=== PATIENT | male | born 1955 | race Caucasian/White ===

== ENCOUNTER 2017-07-01 14:04 | Emergency (ER) | payer BC ==
[~2017-07-01 14:04] MED LIST: ISOVUE-370 76%-LOCM 1 ML ONE
[2017-07-01 14:31] LABS: #Basophils 0.1 thou/uL (0.0-0.2); #Eosinphils 0.1 thou/uL (0.0-0.7); #Lymphocytes 1.7 thou/uL (1.20-3.40); #Monocytes 0.4 thou/uL (0.11-0.59); #Neutrophils 4.4 thou/uL (1.40-6.50); %Eosinophils 0.9 % (0.0-10.0); %Monocytes 6.4 % (0.0-10.0); %Neutrophils 66.8 % (42.0-75.0); Hemoglobin 14.6 g/dL (14.0-18.0); Mean Corpuscular HGB CONC 34.3 g/dL (32.0-36.0); Mean Corpuscular Hemoglobin 33.9 pg (27.0-31.0); Platelet Count 187 thou/uL (130-400); RBC Distribution Width 11.5 % (11.5-14.5); Red Blood Cell (RBC) Count 4.29 mill/uL (4.70-6.10); White Blood Cell (WBC) Count 6.6 thou/uL (4.8-10.8)
[2017-07-01 14:52] LABS: ALT (SGPT) 18 U/L (8-55); AST (SGOT) 39 U/L (5-34); Albumin 4.2 g/dL (3.5-5.0); Alkaline Phosphatase 70 U/L (40-150); Anion Gap 11 mmol/L (10-20); BUN (Urea Nitrogen) 17 mg/dL (8.4-25.7); Bilirubin, Total 0.3 mg/dL (0.2-1.2); Calc. Creatinine Clearance 0 mL/min (70-130); Calcium 9.3 mg/dL (7.8-10.44); Carbon Dioxide 26 mmol/L (22-29); Chloride 103 mmol/L (98-107); Estimated GFR-MDRD Greater than 90; Globulin 2.5 g/dL (2.4-3.5); Glucose 133 mg/dL (70-105); Potassium 3.8 mmol/L (3.5-5.1); Protein, Total 6.7 g/dL (6.0-8.3); Sodium 136 mmol/L (136-145)
--- NOTE | 2017-07-01 15:54 | CT ---
CT OF THE ABDOMEN AND PELVIS WITH IV CONTRAST 07/01/17 PROVIDED CLINICAL HISTORY: Right flank pain status post injury. FINDINGS: The visualized lung bases are free of significant opacity. There is a 3.8 cm solid appearing mass involving the anterior aspect of the mid to lower portion of t he right kidney. There is an exophytic hypodensity emanating from the inferior pole of the right kidn ey as well that demonstrates Hounsfield units greater than expected for a simple cyst but not clearly representing a solid enhancing process. Simple appearing cysts are also seen involving each kidney. The liver, spleen, pancreas, and adrenal glands demonstrate an unremarkable CT appearance. Changes of prior gastric sleeve surgery are noted. There is a circumscribed area of increased attenuation within the subcutaneous adipose layer of the r ight flank adjacent to the right iliac wing laterally compatible with hematoma. This measures about 7 .6 cm. there is no evidence for active extravasation. Surrounding fat stranding is present which like ly reflects bruising. There is no evidence for fracture. Sagittal and coronal lumbar spine reconstructions demonstrate norm al spinal alignment without evidence for fracture. Lumbar degenerative changes are seen. Atherosclerotic vascular calcifications are noted. IMPRESSION: 1. Solid right renal mass suspicious for renal cell carcinoma. Urology consultation is recommend ed. 2. Indeterminate exophytic focus arising from the inferior pole of the right kidney as well. Cor relation with renal ultrasound may be useful. 3. Right flank hematoma without evidence for active extravasation. Findings communicated to Dr. Rosa of the Emergency Department at 3:16 p.m., 07/01/17. Code CR POS: [facility]
[2017-07-01 16:39] LABS: Bilirubin Negative (Negative); Blood, Urine Negative (Negative); Clarity CLEAR (Clear); Glucose, Urine (Dipstick) Negative (Negative); Leukocyte Negative (Negative); Nitrite Negative (Negative); Protein, Urine (Dipstick) Negative (Neg-Trace); Specific Gravity, Urine 1.019 (1.002-1.036); Urobilinogen 0.2 mg/dL (0.2-1.0); pH, Urine 5.5 (5.0-9.0)
== END 2017-07-01 16:25 | disposition home or self-care (01) ==
LOC: ERS 14:04
DX: S30.1XXA Contusion of abdominal wall, initial encounter (principal); N28.89 Other specified disorders of kidney and ureter; I10 Essential (primary) hypertension; Z79.82 Long term (current) use of aspirin; W55.22XA Struck by cow, initial encounter
CPT/HCPCS: 36415; 74177; 80053; 81003; 85025; 86850; 86900; 86901

== ENCOUNTER 2017-07-12 11:15 | Inpatient (IN) | payer BC ==
[2017-07-12 12:13] VITALS: BMI 32.8
[2017-07-26] MEDS ORDERED: Bacitracin Zinc Ointment 30 gm TUBE ONE (07:13)
[2017-07-26] MEDS ORDERED: Fentanyl 100 MCG/2 ML VIAL ONE ×3 (07:48→12:55)
[2017-07-26] MEDS ORDERED: Midazolam HCl 2 mg/2 ml Vial ONE ×2 (07:48→07:57)
[2017-07-26] MEDS ORDERED: CEFAZOLIN/Water 2 GM/20 ML SYRINGE ONE (08:04)
[2017-07-26] MEDS ORDERED: Ropivacaine 0.5% HCl/PF (150 MG/30 ML VIAL) ONE (08:04)
[2017-07-26] MEDS ORDERED: Levofloxacin 500 mg/D5W 100 ml Premix Bag ONE (08:04)
[2017-07-26] MEDS ORDERED: Bupivacaine 0.25% 10 ML VIAL EPIDURAL PRN (08:15)
[2017-07-26] MEDS ORDERED: Naloxone HCl 0.4 mg/ml Vial IVP PRN (08:15)
[2017-07-26] MEDS ORDERED: Promethazine HCl 25 MG SUPP PR PRN (08:15)
[2017-07-26] MEDS ORDERED: diphenhydrAMINE 25 MG CAP PO PRN (08:15)
[2017-07-26] MEDS ORDERED: fentaNYL Citrate/PF 1,250 MCG, Bupivacaine 25 ML in Sodium Chloride 0.9% 250 ML 200 ML EPIDURAL SCH (08:15)
[2017-07-26] MEDS ORDERED: Hydrocerin (Eucerin) Cream 120 gm Jar TOP PRN (08:15)
[2017-07-26] MEDS ORDERED: diphenhydrAMINE 50 MG/ML VIAL IM PRN (08:15)
[2017-07-26] MEDS ORDERED: diphenhydrAMINE 50 MG/ML VIAL IVP PRN (08:15)
[2017-07-26] MEDS ORDERED: Naloxone HCl 0.4 mg/ml Vial IV PRN (08:15)
[2017-07-26] MEDS ORDERED: Zolpidem Tartrate 5 MG TAB PO PRN (08:15)
[2017-07-26] MEDS ORDERED: traMADol HCl 50 MG TAB PO PRN (08:15)
[2017-07-26] MEDS ORDERED: Promethazine HCl 25 MG/ML VIAL IM PRN ×2 (08:15→12:50)
[2017-07-26] MEDS ORDERED: Ondansetron HCl/PF 4 MG/2 ML Vial IVP PRN ×2 (08:15→12:50)
[2017-07-26] MEDS ORDERED: Ondansetron HCl/PF 4 MG/2 ML Vial ONE (11:33)
[2017-07-26] MEDS ORDERED: Lidocaine 1% PF 5 ML VIAL ONE (11:33)
[2017-07-26] MEDS ORDERED: PROPOFOL 200 MG/20 ML VIAL ONE (11:33)
[2017-07-26] MEDS ORDERED: Glycopyrrolate 0.2 MG/ML 5 ML SYRINGE ONE (11:33)
[2017-07-26] MEDS ORDERED: Promethazine HCl 25 MG/ML VIAL SLOW IVP PRN (12:50)
--- NOTE | 2017-07-26 13:09 | OP ---
DATE OF PROCEDURE: 07/26/2017 SERVICE: Urology. SURGEON: Sunny Arita M.D. ASSISTING PHYSICIAN: Nida Kelly D.O. PREOPERATIVE DIAGNOSIS: Right renal mass. POSTOPERATIVE DIAGNOSIS: Right renal mass. PROCEDURE PERFORMED: Right open partial nephrectomy. INDICATIONS FOR PROCEDURE: Mr. Lynch is a 62-year-old white male who presented to the emergency emma after getting kicked by a calf in the right flank. A CT done for the farm injury demonstrated that he had a small hematoma in his right flank, but also incidentally noted was an approximately 3.8 cm anterior lower pole renal mass and posterior indeterminate renal cyst. The anterior mass had a high risk for malignancy. Therefore, we discussed options and he elected for an open partial nephrectomy. Risks and benefits have been discussed and he has agreed to proceed forward. DESCRIPTION OF PROCEDURE: After identification of arm band and verification of consent, the patient was brought back to the operating room where he underwent general anesthesia with endotracheal intuba tion. He had an epidural placed preoperatively. He was placed in the modified supine position with the right side elevated 30 degrees and the bed flexed. All pressure points were padded and SCDs and a Collado catheter were placed as well. Incision was initially made from below the xiphoid approximate ly 3 cm below the xiphoid to 2 cm below the right costal margin. Dissection was carried down with Rock vie electrocautery to the external oblique aponeurosis. This was divided and the external oblique an d anterior rectus muscle were divided on the right side. The internal oblique aponeurosis and muscle s were then divided and the transversalis was bluntly spread to gain entry into the peritoneum. The falciform ligament was divided with the LigaSure device. There was significant amount of adhesions n oted within the patient's right lower quadrant and around his liver, presumably from his prior gastri c bypass surgery and previous ruptured appendix surgery. Lysis of adhesions was carried out with Met zenbaum scissors, taking care to avoid injury to colon. The colon was mobilized medially and the citlali er freed from adhesions. The gallbladder was noted to look healthy and there were no palpable stones within the gallbladder. Attention was then turned in between the Gerota's fascia and the reflected colon to expose the second and third portion of the duodenum. This was carefully dissected free and retracted medially along the lateral edge of the duodenum to expose the inferior vena cava below. Th e inferior vena cava was dissected completely until the gonadal vein could be seen inserting into the IVC. The renal vein was then dissected to expose the renal hilum. The renal artery was posterior t o this and could not reliably be identified. The renal vein was extremely short making exposure of t he renal artery extremely difficult. The upper pole was mobilized and care was taken to try to avoid removal of the adrenal gland. A small portion of the inferior aspect of the adrenal was accidentall y excised with the LigaSure device, but the majority of the adrenal gland has remained intact in situ . The posterior and lateral aspects of the kidney were dissected free. The inferior margin of the k idney was dissected free and the ureter was identified and secured with a vessel loop for later ident ification. The cyst on the posterior aspect of the kidney was dissected free and found to be primari ly intact with the fat. There was extremely small portion connected to the renal capsule. This was sharply excised and the base burned with argon beam. Fat was sent for routine pathologic evaluation. The fat around the kidney was then also dissected free. The fat was extremely dense and fibrotic w ith high vascularity causing significant bleeding around the kidney during the fat dissection. The f at was extremely adherent to the renal capsule. Attempts to find a plane between the renal capsule a nd the fat were not possible. Therefore, the majority of the lower pole of the kidney was dissected by going subcapsular and exposing the kidney itself. The renal cyst was exposed and the tumor was id entified right next to this. The fat over the tumor was sent separately for routine pathologic evalu ation as likely the capsule of the tumor was also adherent to the fat and this was all sent for patho logy. Once the tumor had been completely isolated and healthy kidney located around it. The tumor w as scored with the Bovie electrocautery. The cyst adjacent to the tumor was punctured and drained. Satinsky clamp was then placed across the renal hilum and clamped completely. This resulted in immed iate ischemia of the kidney. The kidney was iced for approximately 5 minutes for cold ischemia and o nce adequately chilled, the ice was removed. Bovie electrocautery was used to cut down through the c ortex of the kidney until the renal medulla could be seen. Using a combination of sharp dissection a nd back end of knife handle, the tumor was dissected free from the surrounding tissues. The greg wa s entered in the lower pole as this was intentional since the tumor was abutting the lower pole greg to ensure that this was a negative margin. The tumor margins looked good. There did not appear to be any violation of the tumor itself. The tumor was then sent for routine pathologic evaluation. Th e calices were closed with a 4-0 Vicryl and any open vessels that could be identified were also close d with a 4-0 Vicryl. The kidney was then closed in Y-configuration using a 0 chromic with pledgets i n a horizontal mattress type suture to close the renal defect. The renal cyst base was cauterized wi th the argon beam to avoid cyst recurrence. Once kidney was adequately closed, the Satinsky clamp wa s released for a total cold ischemia time of 27 minutes. The kidney immediately reperfused and there appeared to be a very mild bleeding from the crotch of the Y where the incision was connected to the cyst bed. Some additional sutures were placed near this location, but the cyst cavity remained open likely resulting in mild slow bleeding. We elected to pack the cyst cavity with the Surgicel which showed tamponade bleeding. This was done and there appeared to be excellent hemostasis at this point . The kidney was then irrigated thoroughly and then FloSeal applied over the suture line. Another S urgicel was applied over the FloSeal to hold it in place. The remaining Gerota's fat was then laid b ack over the kidney and closed with interrupted 2-0 Vicryls. The colon was then placed back into its original anatomic location and a TADEO drain was placed posterior to the kidney near Gerota's fascia an d brought out through a separate tiny incision below the main incision. The fascia was then closed i n two layers using a #1 PDS and some Stephanie was applied in between layers underneath the muscle jamil es. The epigastric was identified and ensured that it was ligated with LigaSure device to ensure yari t it was not bleeding prior to closure of the outer external oblique aponeurosis. More Stephanie was ap plied to the subcutaneous tissues and the skin closed with a skin stapler. An island dressing was ap plied and dressing around the TADEO drain. The patient was then taken out of positioning, awakened and taken to PACU for recovery in stable condition. COMPLICATIONS: None. ESTIMATED BLOOD LOSS: 600 mL. RETAINED TUBES AND DRAINS: A 16 Russian Collado catheter as well as #19 TADEO drain. SPECIMENS: Peritumor fat, right posterior indeterminate renal cyst and renal tumor. DISPOSITION: The patient will be admitted to the hospital for postoperative recovery. Once he is di scharged, his follow up will be handled on an outpatient basis.
[2017-07-26 13:47] LABS: #Monocytes 0.4 thou/uL (0.11-0.59); #Neutrophils 6.9 thou/uL (1.40-6.50); %Eosinophils 0.3 % (0.0-10.0); %Lymphocytes 11.5 % (21.0-51.0); %Monocytes 4.7 % (0.0-10.0); %Neutrophils 83.5 % (42.0-75.0); Hemoglobin 12.8 g/dL (14.0-18.0); Mean Corpuscular HGB CONC 33.8 g/dL (32.0-36.0); Mean Corpuscular Hemoglobin 34.5 pg (27.0-31.0); Mean Platelet Volume 5.9 fL (7.4-10.4); Platelet Count 161 thou/uL (130-400); RBC Distribution Width 11.6 % (11.5-14.5); Red Blood Cell (RBC) Count 3.71 mill/uL (4.70-6.10); White Blood Cell (WBC) Count 8.3 thou/uL (4.8-10.8)
[2017-07-26 14:08] LABS: Anion Gap 8 mmol/L (10-20); BUN (Urea Nitrogen) 16 mg/dL (8.4-25.7); Calc. Creatinine Clearance 125 mL/min (70-130); Calcium 8.2 mg/dL (7.8-10.44); Carbon Dioxide 29 mmol/L (22-29); Chloride 103 mmol/L (98-107); Estimated GFR-MDRD 81; Glucose 130 mg/dL (70-105); Potassium 4.2 mmol/L (3.5-5.1); Sodium 136 mmol/L (136-145)
[2017-07-26] MEDS ORDERED: Oxybutynin 5 MG TAB PO PRN (16:10)
[2017-07-26] MEDS ORDERED: Bisacodyl 10 MG SUPP PR PRN (16:10)
[2017-07-26] MEDS ORDERED: hydrALAZINE 20 MG/ML VIAL SLOW IVP PRN (16:10)
[2017-07-26] MEDS: Docusate 100 MG CAP PO SCH (20:58)
[2017-07-26] MEDS: cefOXitin 1.5 GM in Sodium Chloride 0.9% 100 ML IVPB SCH (21:03)
[2017-07-26] MEDS: Sodium Chloride 0.9% 1,000 ML IV SCH (21:07)
[2017-07-27 05:06] LABS: #Lymphocytes 1.3 thou/uL (1.20-3.40); #Monocytes 0.5 thou/uL (0.11-0.59); #Neutrophils 5.4 thou/uL (1.40-6.50); %Basophils 0.3 % (0.0-1.0); %Eosinophils 0.3 % (0.0-10.0); %Lymphocytes 17.6 % (21.0-51.0); %Neutrophils 74.8 % (42.0-75.0); Hemoglobin 12.1 g/dL (14.0-18.0); Mean Corpuscular HGB CONC 34.5 g/dL (32.0-36.0); Mean Corpuscular Hemoglobin 34.8 pg (27.0-31.0); Mean Platelet Volume 6.3 fL (7.4-10.4); Platelet Count 144 thou/uL (130-400); RBC Distribution Width 11.6 % (11.5-14.5); Red Blood Cell (RBC) Count 3.48 mill/uL (4.70-6.10); White Blood Cell (WBC) Count 7.3 thou/uL (4.8-10.8)
[2017-07-27 05:10] LABS: Anion Gap 10 mmol/L (10-20); BUN (Urea Nitrogen) 14 mg/dL (8.4-25.7); Calc. Creatinine Clearance 114 mL/min (70-130); Calcium 8.1 mg/dL (7.8-10.44); Carbon Dioxide 29 mmol/L (22-29); Chloride 104 mmol/L (98-107); Estimated GFR-MDRD 73; Glucose 106 mg/dL (70-105); Sodium 139 mmol/L (136-145)
[2017-07-27] MEDS: Sodium Chloride 0.9% 1,000 ML IV SCH ×3 (05:15→15:00)
[2017-07-27] MEDS: cefOXitin 1.5 GM in Sodium Chloride 0.9% 100 ML IVPB SCH ×2 (06:43→15:00)
[2017-07-27] MEDS: Docusate 100 MG CAP PO SCH ×2 (08:35→19:54)
[2017-07-27] MEDS: Acetaminophen 1,000 MG in Premix Bag 1 BAG IVPB PRN ×2 (10:29→19:54)
--- NOTE | 2017-07-27 20:03 | PRG ---
DATE OF SERVICE: 07/27/2017 SUBJECTIVE: The patient states he is feeling quite good. His pain is worse than yesterday, but his epidural had also been turned down. He is not in uncontrolled pain. He denies any appetite. He has not had any flatus. He denies any rumbling in his stomach. He denies any nausea, vomiting, chest p ain, shortness of breath, fevers or chills. He has not been out of bed. OBJECTIVE: VITAL SIGNS: Temperature 98.7, pulse 76, respirations 20, blood pressure 96/59, saturation 92% on ro om air. GENERAL: No apparent distress, communicative and alert. CARDIOVASCULAR: Regular rate and rhythm. ABDOMEN: Soft, nondistended, appropriately tender to palpation. Incision is currently dressed. TADEO is serosanguineous. GENITOURINARY: Collado catheter in place with blood-tinged urine. EXTREMITIES: No clubbing, cyanosis or edema. SCDs in place. TADEO put out 60 mL overnight. LABORATORY EVALUATION: A full set of labs are in the [facility] system, which I have reviewed. Of not e, the patient's hemoglobin is stable at 12.1. Creatinine is stable at 1.04. ASSESSMENT: A 62-year-old white male status post right open partial nephrectomy, postoperative day # 1, recovering appropriately. I would like him to get up out of bed today with assistance only. I wi ll counseling psychologist walking program. His bed rest restrictions are now lifted. I would like him to use his i ncentive spirometer 10 times an hour. I would like to keep him n.p.o. for the current time, we will continue with IV fluids and pain control per the Anesthesia team. If his hemoglobin is stable tomorr ow, we will start Lovenox for deep venous thrombosis prophylaxis. I will continue to monitor and obt ain daily labs.
[2017-07-28] MEDS: Sodium Chloride 0.9% 1,000 ML IV SCH ×3 (00:15→10:56)
[2017-07-28 05:34] LABS: #Eosinphils 0.1 thou/uL (0.0-0.7); #Monocytes 0.5 thou/uL (0.11-0.59); #Neutrophils 5.4 thou/uL (1.40-6.50); %Basophils 0.4 % (0.0-1.0); %Eosinophils 1.5 % (0.0-10.0); %Lymphocytes 14.2 % (21.0-51.0); %Monocytes 6.9 % (0.0-10.0); Hemoglobin 11.2 g/dL (14.0-18.0); Mean Corpuscular HGB CONC 33.3 g/dL (32.0-36.0); Mean Platelet Volume 6.2 fL (7.4-10.4); Platelet Count 119 thou/uL (130-400); RBC Distribution Width 11.6 % (11.5-14.5)
[2017-07-28 05:45] LABS: Anion Gap 7 mmol/L (10-20); BUN (Urea Nitrogen) 13 mg/dL (8.4-25.7); Calc. Creatinine Clearance 123 mL/min (70-130); Calcium 8.9 mg/dL (7.8-10.44); Carbon Dioxide 28 mmol/L (22-29); Chloride 107 mmol/L (98-107); Estimated GFR-MDRD 80; Glucose 94 mg/dL (70-105); Potassium 4.4 mmol/L (3.5-5.1); Sodium 138 mmol/L (136-145)
[2017-07-28] MEDS: Docusate 100 MG CAP PO SCH ×2 (08:40→21:13)
--- NOTE | 2017-07-28 09:04 | PRG ---
DATE OF SERVICE: 07/28/2017 SUBJECTIVE: The patient states he is feeling good. He had minimal to no pain last night. He slept very well. Denies any chest pain or shortness of breath. He did pass a little bit of gas this morni ng. He does not have a strong appetite, but states he would be willing to try something to drink. OBJECTIVE: VITAL SIGNS: Temperature 99.3, pulse 84, respirations 15, blood pressure 110/68, saturation 95% on r oom air. Ins and outs, the patient had approximately 3000 mL in IV fluids and 575 mL orally. He put out 675 mL from his Collado and 100 mL from the TADEO drain. GENERAL: No apparent distress, communicative and alert. CARDIOVASCULAR: Regular rate and rhythm. ABDOMEN: Soft, minimally tender to palpation, nondistended. Positive bowel sounds. Incision dressi ng was removed today. Incision is clean, dry, and intact without evidence of infection. TADEO is seros anguineous. GENITOURINARY: Collado catheter in place with clear yellow urine. EXTREMITIES: No clubbing, cyanosis or edema. SCDs in place. LABORATORY DATA: The full set of labs are in the [facility] system, which I have reviewed. Of note, t he patient's hemoglobin is currently 11.2. White count is 7, creatinine of 0.96. ASSESSMENT AND PLAN: A 62-year-old white male status post right open partial nephrectomy from the prado bcostal approach. Postop day #2, doing very well. His dressing was removed today. I would like to start working his epidural down, although I do not want it removed today. We may consider trying to have it removed tomorrow. I will go ahead and start him on Lovenox today as he does not have any sig nificant signs of bleeding. His hemoglobin is relatively stable. I do believe that is dilutional gi willy that he is getting a significant amount of fluids in and only producing a small amount of urine. We will turn his IV fluids down today, but not off as I do not expect him to take large amounts of p .o. fluid. I would like him to continue using his incentive spirometer and be up out of bed to try a nd promote bowel function. We will start clear liquids today and once he passes more gas or has stro ng rumbling or stronger appetite we can start some regular diet. Dr. Sohan Lai will be covering fo r me over the weekend and will continue to round on the patient in my stead. I will resume care on on. Currently, we are looking at possible disposition home on Monday pending the patient recovers as expected.
[2017-07-28] MEDS: Acetaminophen 650 MG in Premix Bag 1 BAG IVPB PRN ×2 (13:00→21:13)
[2017-07-28] MEDS: Enoxaparin Sodium 40 MG/0.4 ML SYRINGE SC SCH (21:13)
[2017-07-29] MEDS: Sodium Chloride 0.9% 1,000 ML IV SCH ×2 (01:17→08:46)
[2017-07-29 06:04] LABS: #Eosinphils 0.2 thou/uL (0.0-0.7); #Lymphocytes 1.2 thou/uL (1.20-3.40); #Monocytes 0.5 thou/uL (0.11-0.59); #Neutrophils 4.1 thou/uL (1.40-6.50); %Basophils 0.4 % (0.0-1.0); %Eosinophils 2.7 % (0.0-10.0); %Lymphocytes 20.5 % (21.0-51.0); %Monocytes 8.3 % (0.0-10.0); %Neutrophils 68.3 % (42.0-75.0); Mean Corpuscular HGB CONC 33.7 g/dL (32.0-36.0); Mean Corpuscular Hemoglobin 34.5 pg (27.0-31.0); Mean Platelet Volume 6.2 fL (7.4-10.4); Platelet Count 108 thou/uL (130-400); RBC Distribution Width 11.5 % (11.5-14.5); Red Blood Cell (RBC) Count 2.91 mill/uL (4.70-6.10); White Blood Cell (WBC) Count 5.9 thou/uL (4.8-10.8)
[2017-07-29 06:10] LABS: Anion Gap 7 mmol/L (10-20); BUN (Urea Nitrogen) 9 mg/dL (8.4-25.7); Calc. Creatinine Clearance 148 mL/min (70-130); Calcium 8.8 mg/dL (7.8-10.44); Carbon Dioxide 29 mmol/L (22-29); Chloride 104 mmol/L (98-107); Estimated GFR-MDRD Greater than 90; Glucose 94 mg/dL (70-105); Potassium 3.9 mmol/L (3.5-5.1); Sodium 136 mmol/L (136-145)
[2017-07-29] MEDS: Docusate 100 MG CAP PO SCH ×2 (08:33→20:44)
[2017-07-29] MEDS: HYDROcodone/Acetaminophen 5/325 mg Tablet PO PRN ×3 (12:08→20:46)
--- NOTE | 2017-07-29 19:13 | PRG ---
DATE OF SERVICE: 07/29/2017 SUBJECTIVE: Mr. Lynch is reporting that he is still having some bloating of his abdomen today. He reports passing a small amount of air per rectum. He is reporting that he is feeling somewhat better today than before. His left-sided TADEO is still in place. Collado catheter is in place and his epidura l has been discontinued. PHYSICAL EXAMINATION: VITAL SIGNS: Temperature is 100.7 and T-max was 103 over the last 24 hours. The patient's current p ulse is 79, respirations 16, O2 saturations 96% on room air, blood pressure is 119/75. GENERAL: This is a pleasant, awake, alert, white male in no apparent distress. He is a good histori an. HEENT: Extraocular movements are intact. Sclerae are anicteric. Oropharynx is clear. NECK: Supple. LUNGS: Clear to auscultation bilaterally. There is some elevation of the auscultatory bragg mast maker iorly secondary to abdominal distention. ABDOMEN: There is increased resonance in all 4 quadrants on percussion. Right-sided subcostal incis ional scar is stapled at this point. There is a right-sided TADEO drain present. GENITOURINARY: Collado catheter remains in place. EXTREMITIES: Appear within normal limits. LAMAR hose and sequential compression devices are present. LABORATORY STUDIES: The patient's white count is 5.9 thousand, hemoglobin is 10.0 with hematocrit o f 29.7. There is no evidence of left shift with 68.3% neutrophils. Renal function appears quite goo d with current blood urea nitrogen of 9 and creatinine of 0.8. Estimated GFR is greater than 90. ASSESSMENT AND PLAN: 1. 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 The patient is doing well. He is making good progress. He is reporting some early signs of return to bowel function. 2. Genitourinary issues, plan to remove the Collado catheter today since the epidural has been removed . 3. Gastrointestinal: The patient has some return to bowel function. I think he should remain on cl ear liquids based on the degree of distention of his abdomen today. 4. Low grade fever, probably related to atelectasis. He did have cultures blood drawn last night, d oes not have any evidence of current left shift or elevation of white count. Therefore, this is prim arily related to abdominal distention issues associated with an ileus. Total evaluation and assessment time, over 35 minutes.
[2017-07-29] MEDS: Enoxaparin Sodium 40 MG/0.4 ML SYRINGE SC SCH (20:44)
[2017-07-29] MEDS: traMADol HCl 50 MG TAB PO PRN (20:45)
[2017-07-30] MEDS: HYDROcodone/Acetaminophen 5/325 mg Tablet PO PRN ×4 (03:44→20:53)
[2017-07-30 05:59] LABS: #Eosinphils 0.2 thou/uL (0.0-0.7); #Lymphocytes 0.9 thou/uL (1.20-3.40); #Monocytes 0.3 thou/uL (0.11-0.59); #Neutrophils 2.3 thou/uL (1.40-6.50); %Basophils 0.5 % (0.0-1.0); %Eosinophils 4.2 % (0.0-10.0); %Lymphocytes 23.5 % (21.0-51.0); %Monocytes 8.8 % (0.0-10.0); %Neutrophils 62.9 % (42.0-75.0); Hemoglobin 9.8 g/dL (14.0-18.0); Mean Corpuscular HGB CONC 34.7 g/dL (32.0-36.0); Mean Corpuscular Hemoglobin 35.3 pg (27.0-31.0); Mean Platelet Volume 6.1 fL (7.4-10.4); Platelet Count 129 thou/uL (130-400); RBC Distribution Width 11.2 % (11.5-14.5); Red Blood Cell (RBC) Count 2.78 mill/uL (4.70-6.10); White Blood Cell (WBC) Count 3.7 thou/uL (4.8-10.8)
[2017-07-30 06:13] LABS: Anion Gap 8 mmol/L (10-20); BUN (Urea Nitrogen) 6 mg/dL (8.4-25.7); Calc. Creatinine Clearance 154 mL/min (70-130); Calcium 8.6 mg/dL (7.8-10.44); Carbon Dioxide 32 mmol/L (22-29); Chloride 104 mmol/L (98-107); Estimated GFR-MDRD Greater than 90; Glucose 95 mg/dL (70-105); Potassium 3.8 mmol/L (3.5-5.1); Sodium 140 mmol/L (136-145)
[2017-07-30] MEDS: Docusate 100 MG CAP PO SCH ×2 (08:24→20:51)
[2017-07-30] MEDS: Sodium Chloride 0.9% 1,000 ML IV SCH ×2 (09:49→23:57)
[2017-07-30] MEDS: traMADol HCl 50 MG TAB PO PRN ×2 (11:22→17:39)
[2017-07-30] MEDS: Enoxaparin Sodium 40 MG/0.4 ML SYRINGE SC SCH (20:52)
[2017-07-31] MEDS: traMADol HCl 50 MG TAB PO PRN ×4 (00:02→23:12)
[2017-07-31] MEDS: HYDROcodone/Acetaminophen 5/325 mg Tablet PO PRN (03:37)
[2017-07-31 05:26] LABS: #Eosinphils 0.2 thou/uL (0.0-0.7); #Lymphocytes 0.8 thou/uL (1.20-3.40); #Monocytes 0.3 thou/uL (0.11-0.59); #Neutrophils 1.9 thou/uL (1.40-6.50); %Basophils 0.4 % (0.0-1.0); %Eosinophils 4.8 % (0.0-10.0); %Lymphocytes 25.7 % (21.0-51.0); %Monocytes 10.3 % (0.0-10.0); %Neutrophils 58.9 % (42.0-75.0); Hemoglobin 9.6 g/dL (14.0-18.0); Mean Corpuscular HGB CONC 34.7 g/dL (32.0-36.0); Mean Platelet Volume 5.8 fL (7.4-10.4); Platelet Count 148 thou/uL (130-400); RBC Distribution Width 11.4 % (11.5-14.5); Red Blood Cell (RBC) Count 2.74 mill/uL (4.70-6.10); White Blood Cell (WBC) Count 3.2 thou/uL (4.8-10.8)
[2017-07-31 05:36] LABS: Anion Gap 10 mmol/L (10-20); BUN (Urea Nitrogen) 6 mg/dL (8.4-25.7); Calc. Creatinine Clearance 185 mL/min (70-130); Calcium 8.5 mg/dL (7.8-10.44); Carbon Dioxide 30 mmol/L (22-29); Chloride 104 mmol/L (98-107); Estimated GFR-MDRD Greater than 90; Glucose 93 mg/dL (70-105); Potassium 3.6 mmol/L (3.5-5.1); Sodium 140 mmol/L (136-145)
[2017-07-31] MEDS: Docusate 100 MG CAP PO SCH ×2 (09:05→20:49)
[2017-07-31] MEDS: Enoxaparin Sodium 40 MG/0.4 ML SYRINGE SC SCH (20:50)
[2017-07-31] MEDS: Bacitracin Zinc 1 Packet TOP SCH (20:50)
[2017-08-01 04:41] LABS: #Eosinphils 0.1 thou/uL (0.0-0.7); #Monocytes 0.4 thou/uL (0.11-0.59); %Basophils 0.4 % (0.0-1.0); %Lymphocytes 27.3 % (21.0-51.0); %Monocytes 11.1 % (0.0-10.0); %Neutrophils 57.2 % (42.0-75.0); Hemoglobin 9.9 g/dL (14.0-18.0); Mean Corpuscular Hemoglobin 34.5 pg (27.0-31.0); Mean Platelet Volume 6.1 fL (7.4-10.4); Platelet Count 177 thou/uL (130-400); RBC Distribution Width 11.2 % (11.5-14.5); Red Blood Cell (RBC) Count 2.87 mill/uL (4.70-6.10); White Blood Cell (WBC) Count 3.5 thou/uL (4.8-10.8)
[2017-08-01 04:57] LABS: Anion Gap 7 mmol/L (10-20); BUN (Urea Nitrogen) 7 mg/dL (8.4-25.7); Calc. Creatinine Clearance 158 mL/min (70-130); Calcium 8.6 mg/dL (7.8-10.44); Carbon Dioxide 34 mmol/L (22-29); Chloride 102 mmol/L (98-107); Estimated GFR-MDRD Greater than 90; Glucose 86 mg/dL (70-105); Potassium 3.7 mmol/L (3.5-5.1); Sodium 139 mmol/L (136-145)
[2017-08-01] MEDS: Docusate 100 MG CAP PO SCH (09:31)
[2017-08-01] MEDS: Bacitracin Zinc 1 Packet TOP SCH (09:31)
[2017-08-01 15:10] VITALS: BP 117/76; TEMP 98.7
--- NOTE | 2017-08-01 16:22 | PRG ---
DATE OF SERVICE: 08/01/2017 SUBJECTIVE: The patient states that he is doing very well. He tolerated regular diet and was able t o eat regular food without any problems. He still has not had a bowel movement, but is passing gas. He did not have any nausea or vomiting after eating. He has been up out of bed, walking on his own. His pain is well controlled on tramadol alone. He was urinating easily and his labs appeared to be stable. He has no other complaints. OBJECTIVE: VITAL SIGNS: Temperature 98.7, pulse 62, respirations 18, blood pressure 128/77, saturation 97% on r oom air. GENERAL: No apparent distress, communicative, alert. CARDIOVASCULAR: Regular rate and rhythm. ABDOMEN: Soft, nontender, and nondistended. Incision is clean, dry, and intact. TADEO is now out. No evidence of infection. EXTREMITIES: No clubbing, cyanosis or edema. LABORATORY DATA: On laboratory evaluation, a full set of labs in the [facility] system, which I have r eviewed. Of note, the patient's white count is 3.5 with hemoglobin 9.9, creatinine is currently 0.75 . ASSESSMENT AND PLAN: A 62-year-old white male with a right clear cell carcinoma status post right op en partial nephrectomy, postoperative day #6, he has recovered fully and has adequate bowel function to be discharged home. He has met all other criteria. I think he can go home and follow up with me in approximately another week for staple removals. I went over his discharge instructions today with him and will send his medications to his pharmacy.
--- NOTE | 2017-08-01 16:31 | PRG ---
DATE OF SERVICE: 07/31/2017 SUBJECTIVE: The patient states he is feeling pretty good. He has had no significant pain. His epid ural was removed over the weekend. His Collado catheter was removed and he has been urinating well. Holli go has not had a bowel movement, but is passing gas. He had some abdominal distention and has no sign ificant appetite. Therefore, he was left on clear liquids over the weekend by Dr. Lai. He has bee n afebrile since then and otherwise has not had any other complaints. He has been getting up out of bed on his own and walking without issues. OBJECTIVE: VITAL SIGNS: Temperature 99.4, pulse 68, respirations 16, blood pressure 143/88, saturation 96% on r oom air. TADEO output is 30 mL over the last 24 hours. GENERAL: No apparent distress, communicative, alert. CARDIOVASCULAR: Regular rate and rhythm. ABDOMEN: Soft, nontender, nondistended. Incision clean, dry, and intact. TADEO serosanguineous with s cant output. Skin abrasions appear to be healing well without infection. There is no obvious hernia or cellulitis. EXTREMITIES: No clubbing, cyanosis, or edema. GENITOURINARY: Collado catheter has been removed. LABORATORY DATA: The full set of labs are in the [facility] system, which I have reviewed. Of note, t he patient's white count is 3.2 with hemoglobin of 9.6. Creatinine is 0.64. ASSESSMENT AND PLAN: A 62-year-old white male with a right renal mass, which has come back with path ology of right clear cell carcinoma from grade II with negative margins, status post right open parti al nephrectomy, postoperative day 5 healing appropriately. He has not had advancement to a regular d iet and has not tried regular food yet. I think I would like to keep in the hospital one more day to advance his diet, ensure that his bowel function has become adequate before we discharge him home, e specially given the fact that he has had a prior gastric sleeve surgery. We will put him on a regula r diet today and discontinue his TADEO tube. I will have him continue walking and using incentive rush meter and monitor to see how he does. If he is able to tolerate regular diet, I think he has met all his other criteria for discharge home tomorrow.
--- NOTE | 2017-08-01 20:32 | DIS ---
DATE OF ADMISSION: 07/26/2017 DATE OF DISCHARGE: 08/01/2017 ADMITTING PHYSICIAN: Sunny Arita M.D. DISCHARGING PHYSICIAN: Sunny Arita M.D. ADMITTING DIAGNOSIS: Right renal mass. DISCHARGE DIAGNOSIS: Right clear cell carcinoma, Selena grade 2. PROCEDURE PERFORMED WHILE INPATIENT: Right open partial nephrectomy via the subcostal approach. BRIEF HISTORY: Mr. Lynch is a 62-year-old white male who initially had presented to me after a trau ma to the right flank and CT demonstrating a right solid renal mass. He also had an indeterminate cy st on the posterior aspect of the kidney. We discussed a partial nephrectomy in this setting with danyell roy risks and benefits and he has elected to proceed forward. He is now coming in for this surgery. HOSPITAL COURSE: After his surgery (please see operative note for details), the patient was admitted to the hospital with an epidural, Collado catheter, and for postop recovery. He was initially left n. p.o. for postop day #0 and started on clears on postop day #1. He was not able to take in large amou nts of fluids; therefore, he was left on IV fluids at least until postoperative day #3, at which time his IV fluids were decreased due to evidence of slowly declining hemoglobin indicative of likely vol ume overload given that he is taking much more fluid and then he was putting out. His creatinine and hemoglobin otherwise remained relatively stable during his hospital stay. He was slowly able to adv ance his diet from clear liquids to a regular diet, although this took some time as he did have a slo w recovery of bowel function. He was able to eat a regular diet by postoperative day #6 at the time of his discharge. His epidural was removed on postoperative day #4 and he had good pain control with tramadol alone. He rarely required his [place] or breakthrough IV pain medications. He was able to g et up and walk initially with a walking program and then subsequently without any assistance. His Fo paola catheter was removed after his epidural was removed and he was able to void spontaneously on his own. The patient originally had hematuria after his surgery, but this cleared up very quickly and he did not have any further episodes of hematuria afterwards. The patient did not have a bowel movemen t while in the hospital, but did pass significant amounts of gas. He otherwise had no chest pain, sh ortness of breath, and did not have any other complications. His recovery went very well and by post op day #6, he had met all required criteria for discharge. DISPOSITION: Discharged to home. DISCHARGE CONDITION: Good. DISCHARGE MEDICATIONS: Include resuming all of his home medications including his aspirin. In addit ion, he was given tramadol 50 mg p.o. q.6 hours p.r.n. pain, [place] 5/325 mg p.o. q.6 hours p.r.n. samra n, and Colace 100 mg p.o. b.i.d. DISCHARGE INSTRUCTIONS: Include no heavy lifting over 20 pounds, no strenuous activity, no driving f or at least 1 additional week after being discharged from the hospital. He should not submerge under water, but may shower. He can continue to eat what he likes although he should continue to eat heal thy foods with higher protein contents and in accordance to his bariatric surgeons' restrictions. He should notify me for recurrent gross hematuria, uncontrolled pain, problems with his incision, fever s, shortness of breath, or chest pain or any other concerning signs or symptoms the patient may have. FOLLOWUP: Will be in approximately 1 week on 08/10/2017, at 1:00 for staple removal and p ostop check.
== END 2017-08-01 15:43 | disposition home or self-care (01) | DRG 657 ==
LOC: SURG A 07-26 06:52 → EDSTATUS 07-26 11:15 → SURG B 07-26 15:48
PROVIDERS: ADMIT Urology; ATTEND Urology
PROC: 0TB00ZZ Excision of Right Kidney, Open Approach (ICD-10-PCS; principal; 2017-07-26)
DX: C64.1 Malignant neoplasm of right kidney, except renal pelvis (principal); J98.11 Atelectasis; E87.70 Fluid overload, unspecified; K56.7 Ileus, unspecified; R50.9 Fever, unspecified; E78.5 Hyperlipidemia, unspecified; I10 Essential (primary) hypertension; I25.10 Atherosclerotic heart disease of native coronary artery without angina pectoris; G47.33 Obstructive sleep apnea (adult) (pediatric); Z88.0 Allergy status to penicillin; Z88.8 Allergy status to other drugs, medicaments and biological substances
CPT/HCPCS: 36415; 80048; 85025; 86850; 86900; 86901; 87040; 87086; 88304; 88307; J0131; J0694; J1650; J1956; J2001; J2250; J2405; J2704; J2795; J3010; J3490; J7050

== ENCOUNTER 2017-07-12 11:54 | Outpatient (CLI) | payer BC ==
[2017-07-12 13:19] LABS: Hemoglobin 14.4 g/dL (14.0-18.0); Mean Corpuscular HGB CONC 34.3 g/dL (32.0-36.0); Platelet Count 212 thou/uL (130-400); RBC Distribution Width 11.5 % (11.5-14.5); Red Blood Cell (RBC) Count 4.11 mill/uL (4.70-6.10); White Blood Cell (WBC) Count 6.5 thou/uL (4.8-10.8)
[2017-07-12 13:32] LABS: PTT 25.3 SEC (22.9-36.1); Prothrombin Time 12.8 SEC (12.0-14.7)
[2017-07-12 13:45] LABS: ALT (SGPT) 17 U/L (8-55); AST (SGOT) 32 U/L (5-34); Albumin 4.1 g/dL (3.5-5.0); Alkaline Phosphatase 73 U/L (40-150); Anion Gap 8 mmol/L (10-20); BUN (Urea Nitrogen) 17 mg/dL (8.4-25.7); Bilirubin, Total 0.5 mg/dL (0.2-1.2); Calc. Creatinine Clearance 0 mL/min (70-130); Calcium 9.2 mg/dL (7.8-10.44); Carbon Dioxide 31 mmol/L (22-29); Chloride 104 mmol/L (98-107); Estimated GFR-MDRD Greater than 90; Globulin 2.4 g/dL (2.4-3.5); Glucose 88 mg/dL (70-105); Potassium 4.1 mmol/L (3.5-5.1); Protein, Total 6.5 g/dL (6.0-8.3); Sodium 139 mmol/L (136-145)
[2017-07-12 14:34] LABS: Bilirubin Negative (Negative); Blood, Urine Negative (Negative); Clarity CLEAR (Clear); Glucose, Urine (Dipstick) Negative (Negative); Leukocyte Negative (Negative); Nitrite Negative (Negative); Protein, Urine (Dipstick) Negative (Neg-Trace); Specific Gravity, Urine 1.008 (1.002-1.036); Urobilinogen 0.2 mg/dL (0.2-1.0)
[2017-07-12 14:41] LABS: Bacteria/HPF None Seen HPF (None Seen); Hyaline Casts/LPF 0-3 HYALINE CAST LPF (0-3 Hyaline); RBC/HPF 0-3 HPF (0-3); Squamous Epithelial None Seen HPF (0-3); WBC/HPF None Seen HPF (0-3)
--- NOTE | 2017-07-12 16:14 | RAD ---
PA AND LATERAL CHEST: Date: 07-12-17 History: Pre-operative evaluation. FINDINGS: Cardiac silhouette and pulmonary vasculature are within normal limits. The lungs are clear. Osseous s tructures are intact. IMPRESSION: No acute cardiopulmonary process. POS: [facility]
== END 2017-07-12 11:55 | disposition home or self-care (01) ==
LOC: LABBT 11:54
PROVIDERS: ATTEND Urology
DX: Z01.818 Encounter for other preprocedural examination (principal); N28.89 Other specified disorders of kidney and ureter
CPT/HCPCS: 71046; 80053; 81001; 85027; 85610; 85730; 93005; 93010

== ENCOUNTER 2017-07-19 14:01 | Outpatient (CLI) | payer BC | END 2017-07-19 14:02 | disposition home or self-care (01) | LOC: LABBT 14:01 | PROVIDERS: ATTEND Urology | DX: Z01.812 Encounter for preprocedural laboratory examination (principal); N28.89 Other specified disorders of kidney and ureter | CPT/HCPCS: 86850; 86900; 86901 ==

== ENCOUNTER 2018-02-23 08:15 | Outpatient (CLI) | payer BC ==
--- NOTE | 2018-02-23 10:14 | RAD ---
PA AND LATERAL CHEST: HISTORY: Renal cell carcinoma of the right kidney. COMPARISON: 07/12/2017 FINDINGS: The heart size is normal. The lungs are well expanded without focal areas of consolidation, pneumoth orax, or pleural effusions. No acute osseous abnormalities are seen. IMPRESSION: No radiographic evidence of acute cardiopulmonary process. POS: [facility]
[2018-02-23] MEDS ORDERED: ISOVUE-370 76%-LOCM 1 ML ONE (12:31)
--- NOTE | 2018-02-23 14:03 | CT ---
CT ABDOMEN WITH AND WITHOUT CONTRAST: HISTORY: Patient with resected right-sided renal cell carcinoma. TECHNIQUE: Pre and post contrast enhanced CT images of the abdomen obtained. Imaged obtained during early and l ate venous phases. FINDINGS: The lung bases demonstrate a well circumscribed, tiny, lower lung base opacity seen on axial image #1 8 and also seen on coronal image #63. This may represent a small, stable lung parenchymal lesion. W hether this represents a metastatic lesion or an area of old scar I cannot determine. No other newly developed lesions seen. The liver and spleen are unremarkable. The gallbladder and pancreas are un remarkable. Gastric surgical alyson are seen. Cortical cyst seen in the left kidney. The patient has had a partial right-sided nephrectomy with alyson seen along the expected contour of the removed surgical mass at the anterior to mid pole of the right kidney. Some edematous changes or scarring seen surrounding the right perirenal space. No evidence of periaortic lymphadenopathy is seen. No definite evidence of osseous metastatic lesions seen. IMPRESSION: Status post partial nephrectomy of the right kidney. No other significant interval changes seen. POS: [facility]
== END 2018-02-23 08:16 | disposition home or self-care (01) ==
LOC: BICCT 08:15
PROVIDERS: ATTEND Urology
DX: C64.1 Malignant neoplasm of right kidney, except renal pelvis (principal); Z90.5 Acquired absence of kidney
CPT/HCPCS: 36415; 71046; 74170; 80048; 81001

== ENCOUNTER 2018-05-14 02:58 | Emergency (ER) | payer BC ==
[2018-05-14 03:29] LABS: Bilirubin Negative (Negative); Blood, Urine Negative (Negative); Clarity CLEAR (Clear); Glucose, Urine (Dipstick) Negative (Negative); Leukocyte Negative (Negative); Nitrite Negative (Negative); Protein, Urine (Dipstick) Negative (Neg-Trace); Specific Gravity, Urine 1.017 (1.002-1.036); Urobilinogen 0.2 mg/dL (0.2-1.0)
[2018-05-14 03:42] LABS: #Basophils 0.1 thou/uL (0.0-0.2); #Eosinphils 0.1 thou/uL (0.0-0.7); #Lymphocytes 1.1 thou/uL (1.20-3.40); #Monocytes 0.4 thou/uL (0.11-0.59); #Neutrophils 6.1 thou/uL (1.40-6.50); %Basophils 0.7 % (0.0-1.0); %Eosinophils 0.8 % (0.0-10.0); %Lymphocytes 14.6 % (21.0-51.0); Hemoglobin 15.4 g/dL (14.0-18.0); Mean Corpuscular HGB CONC 34.2 g/dL (32.0-36.0); Mean Corpuscular Hemoglobin 34.4 pg (27.0-31.0); Mean Platelet Volume 6.5 fL (7.4-10.4); Platelet Count 198 thou/uL (130-400); RBC Distribution Width 11.3 % (11.5-14.5); Red Blood Cell (RBC) Count 4.48 mill/uL (4.70-6.10); White Blood Cell (WBC) Count 7.7 thou/uL (4.8-10.8)
[2018-05-14 03:58] LABS: ALT (SGPT) 19 U/L (8-55); AST (SGOT) 41 U/L (5-34); Albumin 4.4 g/dL (3.4-4.8); Alkaline Phosphatase 76 U/L (40-150); Anion Gap 15 mmol/L (10-20); BUN (Urea Nitrogen) 16 mg/dL (8.4-25.7); Bilirubin, Total 0.5 mg/dL (0.2-1.2); Calc. Creatinine Clearance 0 mL/min (70-130); Calcium 9.6 mg/dL (7.8-10.44); Carbon Dioxide 27 mmol/L (23-31); Chloride 100 mmol/L (98-107); Estimated GFR-MDRD 83; Globulin 2.7 g/dL (2.4-3.5); Glucose 130 mg/dL (80-115); Lipase 37 U/L (8-78); Potassium 4.3 mmol/L (3.5-5.1); Protein, Total 7.1 g/dL (5.8-8.1); Sodium 138 mmol/L (136-145)
--- NOTE | 2018-05-14 08:39 | ULT ---
PRELIMINARY REPORT/[facility]/EMERGENTY AFTER-HOURS PROCEDURE US Abdomen Limited, Right Upper Quadrant EXAM DATE/TIME: 05/14/2018 5:11 AM CLINICAL HISTORY: 63 years old, male; Pain; Other: Upper abd pain; Prior surgery; Surgery date: 6+ months; Surgery type : Mass removed from RT kid TECHNIQUE: Real-time ultrasound of the abdomen with image documentation. Examination was focused on the right up per quadrant. COMPARISON: No relevant prior studies available. FINDINGS: Liver: Normal. No masses. Gallbladder: Gallbladder wall is within normal limits. A negative sonographic Cadleron sign is reported . There is no cholelithiasis. Common bile duct: CBD measures 4 mm in diameter. RIGHT kidney measures 11.8 x 5.6 x 5.0 cm. Pancreas: The pancreas is poorly-visualized due to overlying bowel gas. Right kidney: See Common Bile Duct Finding. IMPRESSION: Unremarkable RIGHT upper quadrant ultrasound. Thank you for allowing us to participate in the care of your patient. Dictated and Authenticated by: Sohan Leonard MD 05/14/2018 6:23 AM Central Time ([place] & [place]) FINAL REPORT RIGHT UPPER QUADRANT ULTRASOUND: Date: 05/14/18 COMPARISON: None. HISTORY: Upper abdominal pain. FINDINGS: I am in agreement with the preliminary report issued by [facility]. The pancreas is not well seen secondary to bowel gas. No focal liver lesion or intrahepatic biliary d ilatation is seen. No gallbladder wall thickening or pericholecystic fluid. No gallstones are noted. Common duct measures 4.0 mm, within normal limits. The right kidney measures 11.8 cm in craniocaudal dimension and demonstrates no stone, hydronephrosis , or mass. The door liner helper reports a negative Calderon's sign. IMPRESSION: Unremarkable right upper quadrant ultrasound. POS: [facility]
== END 2018-05-14 06:40 | disposition home or self-care (01) ==
LOC: ERS 02:58
DX: R10.11 Right upper quadrant pain (principal); I10 Essential (primary) hypertension; Z87.891 Personal history of nicotine dependence; Z79.82 Long term (current) use of aspirin
CPT/HCPCS: 36415; 76705; 80053; 81003; 83690; 85025

== ENCOUNTER 2019-03-01 10:46 | Outpatient (CLI) | payer BC ==
--- NOTE | 2019-03-01 11:08 | RAD ---
EXAM: Chest PA and lateral: HISTORY: Renal cell carcinoma right kidney COMPARISON: 02/23/2018 FINDINGS: Minimal nonspecific right-sided pleural thickening or pleural-based parenchymal change, new from the prior study.. Heart size:Within normal limits. Lungs:Clear of acute process. No confluent pneumonia, overt edema, pleural effusion, or other acute process. IMPRESSION: Small focus of pleural thickening or pleural-based parenchymal changes in the lateral aspect of the r ight lower chest, new, nonspecific. Consider short-term follow-up in one-3 months.
[2019-03-01 11:28] LABS: Estimated GFR-MDRD - POC Greater than 90
[2019-03-01] MEDS ORDERED: Iopamidol-370 76% 500 ML 1 ML ONE (11:41)
--- NOTE | 2019-03-01 12:42 | CT ---
Exam: Abdomen CT scan with and without IV contrast with multiphase imaging: HISTORY: Follow-up renal cell carcinoma right kidney prior partial nephrectomy. COMPARISON: 02/23/2018 FINDINGS: There is a small stable 0.6 cm diameter pleural-based nodule in the left lower lobe unchanged from pr ior exam. Postoperative changes of the stomach with the small associated hiatal hernia and minimal distal esophageal wall thickening. The liver, gallbladder, pancreas, spleen, and adrenal glands are u nremarkable. Small bilateral stable renal cysts. Some calcification of the anterior lateral cortex of the right kidney evidence for prior partial nephrectomy, stable. No evidence for adenopathy. No ev idence for bone metastasis. No abnormal fluid collection. IMPRESSION: Stable postoperative partial right nephrectomy changes. Small stable bilateral renal cysts. Small stable 0.6 cm diameter pleural-based nodule in the inferior left lower lobe Postop changes of the stomach with possible small hiatal hernia and minimal distal esophageal wall th ickening, stable, nonspecific.
== END 2019-03-01 10:47 | disposition home or self-care (01) ==
LOC: BICCT 10:46
PROVIDERS: ATTEND Urology
DX: C64.1 Malignant neoplasm of right kidney, except renal pelvis (principal); N28.1 Cyst of kidney, acquired; R91.1 Solitary pulmonary nodule; Z90.5 Acquired absence of kidney
CPT/HCPCS: 36415; 71046; 74170; 80048; 81001; 82565

== ENCOUNTER 2019-12-11 14:10 | Outpatient (CLI) | payer BC ==
--- NOTE | 2019-12-11 14:26 | RAD ---
EXAM: 3 views of the right shoulder HISTORY: Shoulder pain COMPARISON: None FINDINGS: There is no evidence of acute fracture or dislocation. No degenerative changes are present. No soft tissue swelling is seen. The visualized thorax is unremarkable. IMPRESSION: No evidence of acute osseous abnormality.
== END 2019-12-11 14:11 | disposition home or self-care (01) ==
LOC: BICRAD 14:10
PROVIDERS: ATTEND Physical Medicine & Rehabilitation
DX: M25.511 Pain in right shoulder (principal)

== ENCOUNTER 2020-03-13 11:42 | Outpatient (CLI) | payer BC ==
--- NOTE | 2020-03-13 12:16 | RAD ---
2 VIEWS CHEST: Date: 03/13/2020 COMPARISON: 03/01/2019. HISTORY: Renal cell carcinoma of the right kidney 2 years ago. FINDINGS: Two views of the chest show normal sized cardiomediastinal silhouette. There is no evidence of consol idation, mass, or pleural effusion. Degenerative changes are seen in the spine. IMPRESSION: No evidence of acute cardiopulmonary disease. POS: [facility]
== END 2020-03-13 11:43 | disposition home or self-care (01) ==
LOC: BICRAD 11:42
PROVIDERS: ATTEND Urology
DX: C64.1 Malignant neoplasm of right kidney, except renal pelvis (principal); Z98.84 Bariatric surgery status
CPT/HCPCS: 36415; 71046; 80053; 80061; 81001; 82306; 82607; 82728; 82746; 83540; 83970; 84425; 85025; G0103

== ENCOUNTER 2021-02-02 14:45 | Outpatient (CLI) | payer BC ==
[~2021-02-02 14:45] MED LIST changes: -ISOVUE-370 76%-LOCM 1 ML ONE; +Iopamidol-370 76% 500 ML 1 ML ONE
== END 2021-02-02 14:46 | disposition home or self-care (01) ==
LOC: BICCT 14:45
PROVIDERS: ATTEND Urology
DX: C64.1 Malignant neoplasm of right kidney, except renal pelvis (principal); N28.1 Cyst of kidney, acquired; R91.1 Solitary pulmonary nodule; K22.89 Other specified disease of esophagus; K40.20 Bilateral inguinal hernia, without obstruction or gangrene, not specified as recurrent; Z98.890 Other specified postprocedural states
CPT/HCPCS: 71046; 74178; Q9967

== ENCOUNTER 2021-12-21 16:50 | Emergency (ER) | payer BC ==
[2021-12-21 17:40] LABS: #Lymphocytes 1.7 thou/uL (1.20-3.40); #Monocytes 0.5 thou/uL (0.11-0.59); #Neutrophils 2.4 thou/uL (1.40-6.50); %Basophils 0.9 % (0.0-1.0); %Eosinophils 0.9 % (0.0-10.0); %Lymphocytes 37.3 % (21.0-51.0); Hemoglobin 14.9 g/dL (14.0-18.0); Mean Corpuscular HGB CONC 34.2 g/dL (32.0-36.0); Mean Corpuscular Hemoglobin 35.9 pg (27.0-31.0); Mean Platelet Volume 6.2 fL (7.4-10.4); Platelet Count 169 thou/uL (130-400); RBC Distribution Width 11.4 % (11.5-14.5); Red Blood Cell (RBC) Count 4.15 mill/uL (4.70-6.10); White Blood Cell (WBC) Count 4.7 thou/uL (4.8-10.8)
[2021-12-21 17:55] LABS: ALT (SGPT) 24 U/L (8-55); AST (SGOT) 49 U/L (5-34); Albumin 4.4 g/dL (3.4-4.8); Alkaline Phosphatase 84 U/L (40-110); Anion Gap 14 mmol/L (10-20); BUN (Urea Nitrogen) 17 mg/dL (8.4-25.7); Bilirubin, Total 0.6 mg/dL (0.2-1.2); Calc. Creatinine Clearance 0 mL/min (70-130); Calcium 9.4 mg/dL (7.8-10.44); Carbon Dioxide 28 mmol/L (23-31); Chloride 102 mmol/L (98-107); Estimated GFR 89; Globulin 2.5 g/dL (2.4-3.5); Glucose 87 mg/dL (80-115); Potassium 4.4 mmol/L (3.5-5.1); Protein, Total 6.9 g/dL (5.8-8.1); Sodium 140 mmol/L (136-145)
[2021-12-21] MEDS ORDERED: Proparacaine 0.5% Opth 15 ML BOT ONE (20:07)
== END 2021-12-21 20:30 | disposition home or self-care (01) ==
LOC: ERS 16:50
DX: R51.9 Headache, unspecified (principal); I10 Essential (primary) hypertension; F17.210 Nicotine dependence, cigarettes, uncomplicated
CPT/HCPCS: 36415; 70450; 80053; 84484; 85025; 85652; 86140; 93005

== ENCOUNTER 2022-04-06 10:36 | Outpatient (CLI) | payer MEDICARE, OTHER | END 2022-04-06 10:37 | disposition home or self-care (01) | LOC: MRI 10:36 | PROVIDERS: ATTEND Orthopaedic Surgery | DX: M75.101 Unspecified rotator cuff tear or rupture of right shoulder, not specified as traumatic (principal); M67.813 Other specified disorders of tendon, right shoulder; R60.0 Localized edema; M24.211 Disorder of ligament, right shoulder; M19.011 Primary osteoarthritis, right shoulder ==

== ENCOUNTER 2023-02-22 09:04 | Outpatient (CLI) | payer MEDICARE, OTHER ==
[2023-02-22] MEDS ORDERED: Iopamidol 370 76% 100 ML VIAL ONE (10:40)
== END 2023-02-22 09:05 | disposition home or self-care (01) ==
LOC: BICCT 09:04
PROVIDERS: ATTEND Urology
DX: C64.1 Malignant neoplasm of right kidney, except renal pelvis (principal)
CPT/HCPCS: 71046; 74177; Q9967